=== PATIENT | male | born 1980 | race Asian ===

== ENCOUNTER 2018-06-16 13:32 | Emergency (ER) | payer SELFPAY ==
[~2018-06-16] VITALS: Ht 170.2 cm; Wt 78.0 kg
[2018-06-16 13:36] VITALS: BP 116/95
--- NOTE | 2018-06-16 13:40 | NUR ---
38 Y/O M BIB SELF W/C/O "I CAN'T BREATH." PT SAID HE FELT SOB AT WORK. PT O2 SAT 98% ON MONITOR ON ROOM AIR. 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 PERRL, WITH EVEN AND STEADY GAIT; LUNGS CLEAR BL, BREATHING UNLABORED; HR EVEN AND REGULAR, BL PERIPHERAL PULSES PRESENT; BS ACTIVE X4, NO TENDERNESS TO PALPATION, NO HEPATOSPLENOMEGALLY PALPATED, RESONANT TO PERCUSSION; PT DENIES ANY FEVER, CP, SOB, OR COUGH AT THIS TIME; PT STATES 0/10 PAIN AT THIS TIME; VSS; PATIENT POSITIONED FOR COMFORT; HOB ELEVATED; BEDRAILS UP X2; BED DOWN.
[2018-06-16] MEDS ORDERED: DEXAMETHASONE 10 MG/ML VIAL IM ONE (13:50)
[2018-06-16] MEDS ORDERED: IPRATROPIUM 0.02% 0.5 MG/2.5 ML NEBU INH ONE (13:50)
[2018-06-16] MEDS ORDERED: ALBUTEROL SULFATE/IPRATROPIU 3 ML SOL IH ONE (13:50)
[2018-06-16] MEDS ORDERED: ALBUTEROL 0.083% 2.5 MG/3 ML NEBU INH ONE (13:50)
[2018-06-16] MEDS: diphenhydrAMINE 50 MG/ML VIAL IM ONE ×2 (14:10→14:13)
[2018-06-16 14:50] VITALS: BP 120/94
--- NOTE | 2018-06-16 14:50 | NUR ---
Patient discharged with v/s stable. Written and verbal after care instructions given and explained. Patient alert, oriented and verbalized understanding of instructions. Ambulatory with steady gait. All questions addressed prior to discharge. ID band removed. Patient advised to follow up with PMD. Rx of AZITHROMYCIN, PREDNISONE, ALBUTEROL given. Patient educated on indication of medication including possible reaction and side effects. Opportunity to ask questions provided and answered.
== END 2018-06-16 14:50 | disposition home or self-care (01) ==
LOC: MED 13:32
DX: J45.901 Unspecified asthma with (acute) exacerbation (principal)
CPT/HCPCS: 71046; 94640; 96372; 99284; J1100; J1200; J7613; J7620; J7644

== ENCOUNTER 2019-01-30 21:17 | Emergency (ER) | payer MEDICAID ==
[~2019-01-30] VITALS: Ht 170.2 cm; Wt 78.0 kg
[2019-01-30 21:20] VITALS: BP 145/90
--- NOTE | 2019-01-30 21:22 | NUR ---
TO LOBBY A/W BED, EDI LUIS NOTED
[2019-01-30] MEDS ORDERED: ALBUTEROL SULFATE/IPRATROPIU 3 ML SOL IH ONE (21:40)
[2019-01-30] MEDS ORDERED: ALBUTEROL 0.083% 2.5 MG/3 ML NEBU INH ONE (21:40)
[2019-01-30] MEDS ORDERED: predniSONE 20 MG TAB PO ONE (21:40)
--- NOTE | 2019-01-30 21:40 | NUR ---
PT AMBULATED TO BED 8
--- NOTE | 2019-01-30 21:45 | NUR ---
38 YO M BIB SELF PRESENTS TO THE ED WITH CO SOB X 1 DAY. PT HAS AUDIBLE WHEEZING, INSP AND EXP. SP02: 92% NO NASAL FLARING. CHEST EXPANSION EQUAL, REGULAR UNLABORED. PT IS HOMELESS. PMH-- ASTHMA RX-- DENIES
--- NOTE | 2019-01-30 21:50 | NUR ---
HHN THERAPY AND RESPIRATORY DRUGS GIVEN ORDERED
--- NOTE | 2019-01-30 21:50 | NUR ---
Respiratory Therapist at bedside for respiratory intervention.
[2019-01-30 22:49] VITALS: BP 123/85
--- NOTE | 2019-01-30 22:49 | NUR ---
Patient discharged with v/s stable. Written and verbal after care instructions given and explained. Patient alert, oriented and verbalized understanding of instructions. Ambulatory with steady gait. All questions addressed prior to discharge. ID band removed. Patient advised to follow up with PMD. Rx of prednisone and albuterol given. Patient educated on indication of medication including possible reaction and side effects. Opportunity to ask questions provided and answered. Pt provided with meal bag, bus pass and homeless resources. Pt dressed appropriately for weather.
== END 2019-01-30 22:49 | disposition home or self-care (01) ==
LOC: MED 21:17
DX: J45.901 Unspecified asthma with (acute) exacerbation (principal); F17.200 Nicotine dependence, unspecified, uncomplicated
CPT/HCPCS: 94640; 99283; J7512; J7613; J7620

== ENCOUNTER 2019-02-01 09:17 | Emergency (ER) | payer MEDICAID ==
[~2019-02-01] VITALS: Ht 170.2 cm; Wt 78.0 kg
[2019-02-01 09:28] VITALS: BP 132/103
--- NOTE | 2019-02-01 09:35 | NUR ---
iv access started aseptically to rt ac area with # 20 gauge,blood drawn/sent to lb,flushed with ns.pt tolerated procedures with no incidents.pt drove here from home for 1--2 day old difficulty breathing/wheezing.danielle adler.awaits reevaluations.
--- NOTE | 2019-02-01 09:39 | NUR ---
er md at bedside for evaluations/assessments.danielle adler.monitors on.awaits reevalautions.
[2019-02-01] MEDS ORDERED: methylPREDNISolone SS 125 MG/2 ML VIAL IVP ONE ×2 (09:45→10:50)
[2019-02-01] MEDS ORDERED: ALBUTEROL 0.083% 2.5 MG/3 ML NEBU INH ONE (09:45)
[2019-02-01] MEDS ORDERED: IPRATROPIUM 0.02% 0.5 MG/2.5 ML NEBU INH ONE (09:45)
--- NOTE | 2019-02-01 09:47 | NUR ---
pt refused flu swab.core java software engineermetal burnisher pan and er made aware.
--- NOTE | 2019-02-01 09:59 | NUR ---
resp. therapist bedside for tx.aao,nad.pt tolerated procedures with no incidents.
[2019-02-01 10:00] LABS: BASOPHILS # (AUTO) 0.1 K/uL (0.00-0.22); EOSINOPHILS # (AUTO) 0.3 K/uL (0-0.4); EOSINOPHILS % (AUTO) 3.2 % (0.0-4.0); HEMATOCRIT 52.3 % (36-52); HEMOGLOBIN 17.2 g/dL (12.0-18.0); LYMPHOCYTES # (AUTO) 3.5 K/uL (2.0-11.5); LYMPHOCYTES % (AUTO) 32.7 % (20.5-51.1); MEAN CORPUSCULAR HEMOGLOBIN 28 pg (27-31); MEAN CORPUSCULAR HGB CONC 33 g/dL (33-37); MEAN CORPUSCULAR VOLUME 86.4 fL (80-94); MONOCYTES # (AUTO) 0.7 K/uL (0.8-1.0); MONOCYTES % (AUTO) 6.4 % (1.7-9.3); NEUTROPHILS # (AUTO) 6.1 K/uL (1.8-7.7); NEUTROPHILS % (AUTO) 56.7 % (42.2-75.2); PLATELET COUNT (AUTO) 248 K/uL (140-450); RED BLOOD CELL COUNT(AUTO) 6.05 MIL/uL (4.20-6.10); RED CELL DISTRIBUTION WIDTH 14.4 % (11.6-13.7); WHITE BLOOD COUNT (AUTO) 10.7 K/uL (4.8-10.8)
--- NOTE | 2019-02-01 10:00 | NUR ---
HHN THERAPY AND RESPIRATIRY DRUGS GIVEN ORDERED
[2019-02-01 10:07] LABS: ANION GAP 13.3 (8-16); CARBON DIOXIDE 29.6 mmol/L (21-32); CREATININE 0.8 mg/dL (0.7-1.3); POTASSIUM 3.9 mmol/L (3.5-5.1)
[2019-02-01 10:13] LABS: ALBUMIN 3.8 g/dL (3.4-5.0); TOTAL BILIRUBIN 0.4 mg/dL (0.0-1.0)
--- NOTE | 2019-02-01 10:43 | NUR ---
ambulated to/from bathroom but no urine specimen.back to bed.security called to open door.awaits reevaluations.
[2019-02-01] MEDS ORDERED: ALBUTEROL SULFATE/IPRATROPIU 3 ML SOL IH ONE (11:10)
--- NOTE | 2019-02-01 11:32 | NUR ---
FOLLOW UP HHN THERAPY AND RESPIRATORY DRUG GIVEN ORDERED
[2019-02-01 11:44] VITALS: BP 141/82
--- NOTE | 2019-02-01 12:02 | NUR ---
pt left without d/c instructions with appropriate clothing and food was offered while here.art framing managervarnishing machine operator and er md aware.
== END 2019-02-01 11:54 | disposition home or self-care (01) ==
LOC: MED 09:17
DX: J45.901 Unspecified asthma with (acute) exacerbation (principal); E11.9 Type 2 diabetes mellitus without complications; I10 Essential (primary) hypertension
CPT/HCPCS: 36415; 71045; 80053; 85025; 87804; 94640; 96374; 99284; J2930; J7613; J7620; J7644

== ENCOUNTER 2019-02-02 21:04 | Emergency (ER) | payer MEDICAID ==
[~2019-02-02] VITALS: Ht 170.2 cm; Wt 78.0 kg
[2019-02-02 21:08] VITALS: BP 149/126
--- NOTE | 2019-02-02 21:12 | NUR ---
PT TO ER BED 11
--- NOTE | 2019-02-02 21:15 | NUR ---
PT TO ED WITH C/O SOB. PT REPORTS HX OF ASTHMA. WHEEZING HEARD BILATERALLY. NO OBVIOUS DISTRESS NOTED. PT PLACED INTO BED, PENDING MD CHANG.
[2019-02-02] MEDS ORDERED: ALBUTEROL SULFATE/IPRATROPIU 3 ML SOL IH ONE (21:30)
--- NOTE | 2019-02-02 21:37 | NUR ---
RT AT BEDSIDE FOR INTERVENTION.
--- NOTE | 2019-02-02 22:38 | NUR ---
Patient discharged with v/s stable. Written and verbal after care instructions given and explained. Patient alert, oriented and verbalized understanding of instructions. Ambulatory with steady gait. All questions addressed prior to discharge. ID band removed. Patient advised to follow up with PMD. Rx of PREDNISONE, ALBUTEROL given. Patient educated on indication of medication including possible reaction and side effects. Opportunity to ask questions provided and answered.
[2019-02-02 22:39] VITALS: BP 149/90
== END 2019-02-02 22:38 | disposition home or self-care (01) ==
LOC: MED 21:04
DX: J45.901 Unspecified asthma with (acute) exacerbation (principal); E11.9 Type 2 diabetes mellitus without complications; I10 Essential (primary) hypertension; F17.210 Nicotine dependence, cigarettes, uncomplicated
CPT/HCPCS: 94640; 99283; J7620

== ENCOUNTER 2019-02-04 07:46 | Inpatient (IN) | payer MEDICAID ==
[~2019-02-04] VITALS: Ht 170.2 cm; Wt 69.9 kg
[2019-02-04 07:56] VITALS: BP 131/80
--- NOTE | 2019-02-04 08:02 | NUR ---
PT AMBULATES TO BED 4
--- NOTE | 2019-02-04 08:03 | NUR ---
Patient being evaluated by physician at bedside.
--- NOTE | 2019-02-04 08:04 | NUR ---
38Y/M BIB SELF WITH C/O SOB X 3 DAYS WITH COUGH AND WHEEZING. PT WAS SEEN WAS SEEN HERE 3 DAYS AGO, COULD NOT OFFERED INHALER, PT IS SAT AT 90% AT THIS TIME WITH HISTORY OF COPD, PT IS AAOX4, VSS AT THIS TIME, BED DOWN, LOW LOCKED AND ER MD AWARE AND NOTIFIED OF PT STATUS. HX: COPD, ASTHMA
[2019-02-04] MEDS ORDERED: ALBUTEROL SULFATE/IPRATROPIU 3 ML SOL IH ONE ×2 (08:05)
[2019-02-04] MEDS ORDERED: methylPREDNISolone SS 125 MG in WATER STERILE 2 ML IM ONE (08:05)
[2019-02-04] MEDS ORDERED: NACL 0.9% 1,000 ML IV ONE (08:10)
[2019-02-04] MEDS ORDERED: methylPREDNISolone SS 125 MG in WATER STERILE 2 ML IV ONE (08:10)
--- NOTE | 2019-02-04 08:10 | NUR ---
LAB AT BEDSIDE
--- NOTE | 2019-02-04 08:14 | NUR ---
RT AT BEDSIDE
[2019-02-04 08:33] LABS: BASOPHILS % (AUTO) 0.2 % (0.0-2.0); EOSINOPHILS # (AUTO) 0.4 K/uL (0-0.4); EOSINOPHILS % (AUTO) 3.2 % (0.0-4.0); HEMATOCRIT 50.3 % (36-52); HEMOGLOBIN 16.8 g/dL (12.0-18.0); LYMPHOCYTES # (AUTO) 3.2 K/uL (2.0-11.5); LYMPHOCYTES % (AUTO) 27.5 % (20.5-51.1); MEAN CORPUSCULAR HEMOGLOBIN 28 pg (27-31); MEAN CORPUSCULAR HGB CONC 33 g/dL (33-37); MEAN CORPUSCULAR VOLUME 84.8 fL (80-94); MONOCYTES # (AUTO) 0.7 K/uL (0.8-1.0); MONOCYTES % (AUTO) 6.3 % (1.7-9.3); NEUTROPHILS # (AUTO) 7.3 K/uL (1.8-7.7); NEUTROPHILS % (AUTO) 62.8 % (42.2-75.2); PLATELET COUNT (AUTO) 238 K/uL (140-450); RED BLOOD CELL COUNT(AUTO) 5.93 MIL/uL (4.20-6.10); RED CELL DISTRIBUTION WIDTH 14.2 % (11.6-13.7); WHITE BLOOD COUNT (AUTO) 11.6 K/uL (4.8-10.8)
[2019-02-04 08:55] LABS: ANION GAP 12.6 (8-16); CARBON DIOXIDE 27.3 mmol/L (21-32); CREATININE 0.8 mg/dL (0.7-1.3); POTASSIUM 3.9 mmol/L (3.5-5.1)
[2019-02-04] MEDS ORDERED: DOCUSATE SODIUM 100 MG GELCAP PO PRN (09:00)
[2019-02-04] MEDS ORDERED: ONDANSETRON 4 MG/2 ML VIAL IM/IVP PRN (09:00)
[2019-02-04] MEDS ORDERED: HYDROcodone/APAP 7.5/325 MG 1 TAB PO PRN (09:00)
[2019-02-04] MEDS ORDERED: ACETAMINOPHEN 325 MG TAB PO PRN (09:00)
[2019-02-04 09:01] LABS: ALBUMIN 3.7 g/dL (3.4-5.0); TOTAL BILIRUBIN 0.4 mg/dL (0.0-1.0)
--- NOTE | 2019-02-04 09:27 | NUR ---
Patient will be admitted to care of DR. MORGAN. Admited to MED SURG. Will go to room 111-A. Belongings list completed. Report to ALYSIA PINO.
--- NOTE | 2019-02-04 09:27 | NUR ---
PT TAKEN TO [facility]LO[facility] BY ALYSIA OJEDA VIA WHEELCHAIR
[2019-02-04 09:30] VITALS: BP 140/89
--- NOTE | 2019-02-04 09:30 | NUR ---
PATIENT ADMITTED TO THE UNIT. PATIENT AOX4 AND AMBULATORY. IV ON THE RIGHT HAND 20G INTACT AND PATENT. SKIN INTACT. NO S/S OF DISTRESS. PT ON ROOM AIR SAT 94% AT THIS TIME. BED LOWERED WITH CALL LIGHT WITHIN REACH. PT ORIENTED TO ROOM AND CALL LIGHT. WILL CONTINUE TO MONITOR PT CLOSELY.
[2019-02-04 10:04] LABS: CHOL/HDL RATIO 3.3 (1-4.5); FREE T4 (FREE THYROXINE) 1.12 ng/dL (0.76-1.46); MAGNESIUM 1.9 mg/dL (1.8-2.4); PHOSPHORUS 3.8 mg/dL (2.5-4.9); THYROID STIMULATING HORMONE 1.66 uIU/mL (0.34-3.74)
--- NOTE | 2019-02-04 10:12 | NUR ---
PT IS UNCOOPERATIVE DURING ASSESSMENT. HE IS REFUSING TO ANSWER MEDICAL HX QUESTIONS. IV FLUIDS RUNNING. VITAL SIGNS STABLE. MRSA SWAB DONE AND TAKEN TO LAB. ALL OTHER NEEDS MET. PT ASKING FOR FOOD. NOTIFIED DR THAT DIET IS REQUIRED. AWAITING DIET SO FOOD TRAY CAN BE ORDERED.
[2019-02-04] MEDS: NACL 0.9% 1,000 ML IV SCH (10:37)
[2019-02-04] MEDS: LACTOBACILLUS RHAMNOSUS GG 1 EACH CAP PO SCH (10:37)
[2019-02-04] MEDS ORDERED: LACTULOSE 20 GM/30 ML UDC PO SCH (11:15)
--- NOTE | 2019-02-04 12:45 | NUR ---
PT IN BED WATCHING TV. ALL NEEDS CURRENTLY MET. WILL CONTINUE TO ROUND FREQUENTLY ON PT. BED IN LOW POSITION, CALL LIGHT WITHIN REACH.
[2019-02-04] MEDS: ALBUTEROL SULFATE/IPRATROPIU 3 ML SOL IH SCH ×2 (13:44→19:16)
--- NOTE | 2019-02-04 14:29 | NUR ---
PT RESTING IN BED. ALL NEEDS CURRENTLY MET. NO COMPLAINTS OF PAIN OR SOB AT THI TIME. BED IN LOW POSITION, CALL LIGHT WITHIN REACH. WILL ROUND FREQUENTLY ON PT.
[2019-02-04 16:00] VITALS: BP 115/67
--- NOTE | 2019-02-04 16:06 | NUR ---
PT ASLEEP IN BED. ALL NEEDS MET AT THIS TIME. NO SIGNS OF SOB OR PAIN. WILL ROUND FREQUENTLY. BED IN LOW PSOTION, CALL LIGHT WITHIN REACH.
--- NOTE | 2019-02-04 17:58 | NUR ---
PT IN BED EATING DINNER. NO COMPLAINTS OF PAIN OR SOB AT THIS TIME. WILL CONTINUE TO MONITOR PT CLOSELY. BED IN LOW POSITION, CALL LIGHT WITHIN REACH.
[2019-02-04] MEDS ORDERED: INSULIN LISPRO SLIDING SCALE 100 UNITS/ML VIAL SUBQ PRN (18:30)
[2019-02-04] MEDS ORDERED: DEXTROSE 50% 50 ML SYR IVP PRN (18:30)
--- NOTE | 2019-02-04 19:10 | NUR ---
ENDORSED PT TO YARN PACKER FOR CONTINUITY OF CARE. PT IN STABLE CONDITION.
--- NOTE | 2019-02-04 19:11 | NUR ---
RECEIVED BEDSIDE REPORT FROM AM SHIFT NURSE. PATIENT AOX4 AND AMBULATORY. BUT WITH FLAT AFFECT. PT IS AMERICAN, BUT UNDERSTANDS [place]. PT APPEARANCE UNKEMPT, REFUSED TO BE PLACED IN A DRESSING GOWN. STILL IN HIS BARE BACK AND PANTS (HX: SCHIZ). IV ON THE RIGHT HAND 20G INTACT AND PATENT. SKIN INTACT. NO S/S OF DISTRESS. BED LOWERED WITH CALL LIGHT WITHIN REACH. POC REVIEWED.. WILL CONTINUE TO MONITOR PT CLOSELY.
[2019-02-04 20:00] VITALS: BP 106/60
--- NOTE | 2019-02-04 20:10 | NUR ---
PT ALWAYS ASKING FOR SNACKS. CHECKED HIS BLOOD SUGAR 150 MG/DL. NO COVERAGE
[2019-02-04] MEDS: methylPREDNISolone SS 125 MG/2 ML VIAL IVP SCH (20:38)
--- NOTE | 2019-02-04 20:38 | NUR ---
PT AGREED TO HAVE HIS MEDICATION AFTER CONVINCING HIM TO HAVE IT-SOLUMEDROL.SAID HE NEEDS IT TO BREATHE EASIER
[2019-02-04] MEDS: BLOOD GLUCOSE MONITORING 1 DEV DEV FS SCH (20:39)
--- NOTE | 2019-02-05 02:00 | NUR ---
PT SLEEPING, NO COMPLAINTS AT THIS TIME. NO RESPIRATORY DISTRESS. HE TOOK OFF HIS 02 2 LPM. TRIED TO PUT IT BACK BUT PT REFUSED. 02 SAT AT THIS TIME 98% W/O O2 VIA CANNULA
[2019-02-05] MEDS: NACL 0.9% 1,000 ML IV SCH ×2 (03:25→09:26)
[2019-02-05 04:00] VITALS: BP 103/57
--- NOTE | 2019-02-05 04:00 | NUR ---
PT DRESSED HIMSELF IN DRESSING GOWN, COLD TEMP IN THE ROOM NOTED.
[2019-02-05] MEDS: BLOOD GLUCOSE MONITORING 1 DEV DEV FS SCH ×3 (05:33→17:19)
--- NOTE | 2019-02-05 06:03 | NUR ---
PT REFUSED TO HAVE LABS WORKS DONE. EXPLAINED THE RISK AND BENEFITS. PT UNCOOPERATIVE
--- NOTE | 2019-02-05 06:54 | NUR ---
PT IN STABLE CONDITION, SLEEPING BUT EASILY AROUSABLE BY NAME. NO RESPIRATORY DISTRESS NOTED, NO COMPLAINTS OF PAIN.WILL ENDORSE TO NEXT SHIFT FOR CONTINUITY OF CARE.
[2019-02-05] MEDS: ALBUTEROL SULFATE/IPRATROPIU 3 ML SOL IH SCH ×3 (07:13→20:08)
--- NOTE | 2019-02-05 07:27 | NUR ---
RECEIVED REPORT FROM CHAIN SAW OPERATOR NURSE. PATIENT LYING DOWN IN BED WATCHING TV. NO DISTRESS NOTED. DENIES ANY PAIN. AAOX2, CALM, NOT-COOPERATIVE, REFUSED AM LABS THIS MORNING, MD ALREADY AWARE. RESPIRATIONS EVEN, UNLABORED, ON ROOM AIR. SKIN INTACT. IV SITE INTACT, PATENT, AND INFUSING IVF PER MD ORDERS. ABDOMEN SOFT, NON-DISTENDED. SAFETY MEASURES IN PLACE, CALL LIGHT WITHIN REACH. WILL CONTINUE TO MONITOR.
--- NOTE | 2019-02-05 08:10 | NUR ---
PATIENT REFUSES VITAL SIGNS CHECK AT THIS TIME. WILL NOTIFY
--- NOTE | 2019-02-05 08:30 | NUR ---
PATIENT GOT UP TO USE BATHROOM, ASKED PATIENT TO USE URINAL FOR URINE SPECIMEN. PATIENT REFUSES TO USE URINAL. NOTIFIED
--- NOTE | 2019-02-05 08:43 | NUR ---
PATIENT HAS BEEN SCREENED AND CATEGORIZED MODERATE NUTRITION RISK. PATIENT WILL BE SEEN WITHIN 3-5 DAYS OF ADMISSION. 02/06/[address]
[2019-02-05] MEDS: methylPREDNISolone SS 125 MG/2 ML VIAL IVP SCH (09:25)
[2019-02-05] MEDS: LACTOBACILLUS RHAMNOSUS GG 1 EACH CAP PO SCH (09:25)
--- NOTE | 2019-02-05 09:28 | NUR ---
PATIENT SITTING IN BED WATCHING TV. NO DISTRESS NOTED. DENIES ANY PAIN. SCHEDULED MEDICATIONS DUE GIVEN. WILL CONTINUE TO MONITOR.
--- NOTE | 2019-02-05 11:40 | NUR ---
PATIENT SITTING IN BED WATCHING TV. CONDITION UNCHANGED. WILL CONTINUE TO MONITOR.
--- NOTE | 2019-02-05 14:07 | NUR ---
PATIENT LYING DOWN IN BED WATCHING TV. ASKS FOR MORE FOOD. SUGARLESS JELLO GIVEN AT THIS TIME.
[2019-02-05 16:00] VITALS: BP 117/60
--- NOTE | 2019-02-05 19:33 | NUR ---
GAVE REPORT TO COAL PICKER NURSE FOR CONTINUITY OF CARE. PATIENT IN STABLE CONDITION.
--- NOTE | 2019-02-05 19:34 | NUR ---
Received endorsement from AM shift RN; patient A/Ox4, able to make needs known, ambulatory. Speaks Turkish and Cambodian Introduced self, updated board. No SOB or distress noted, on room air. IV site on right hand. 20 gauge, IVF infusing at 80mL/HR. Skin intact. Bed in the lowest position, call light within reach. Initial assessment done. Will continue to monitor.
--- NOTE | 2019-02-05 19:58 | NUR ---
Vitals taken, patient eating sandwich. Patient stated he wanted to leave the hospital immediately, AMA. Patient educated on risks of AMA. Made Dr. Robbins aware. Dr. Robbins went to bedside and talked to patient and explained risks of AMA. Patient accepted risks. Told patient that I will remove IV line and that he had to sign AMA paperwork, patient agreed, said that he will wait.
--- NOTE | 2019-02-05 20:04 | NUR ---
Went to patient's room to have him sign AMA paperwork, patient could not be found. Checked patient bathroom, patient could not be found. checked parking lot, patient could not be found. Patient elopement. Security and charge nurse made aware.
--- NOTE | 2019-02-05 20:09 | NUR ---
PT LEFT AMA.
[2019-02-05] MEDS ORDERED: methylPREDNISolone SS 40 MG/ML VIAL IVP SCH (21:00)
== END 2019-02-05 20:04 | disposition left against medical advice (07) | DRG 203 ==
LOC: MED 07:46 → MTU 08:57
PROVIDERS: ADMIT General Practice; ATTEND General Practice
DX: J45.901 Unspecified asthma with (acute) exacerbation (principal); F20.9 Schizophrenia, unspecified; K72.90 Hepatic failure, unspecified without coma; I10 Essential (primary) hypertension; E11.9 Type 2 diabetes mellitus without complications; F17.210 Nicotine dependence, cigarettes, uncomplicated; F12.90 Cannabis use, unspecified, uncomplicated; F94.0 Selective mutism; Z91.19 Patient's noncompliance with other medical treatment and regimen; Z59.0 Homelessness
CPT/HCPCS: 36415; 71045; 80053; 82140; 82948; 83036; 83605; 83735; 83880; 84100; 84439; 84443; 85025; 85610; 85730; 87040; 87081; 94640; 96361; 96374; 99285; J2930; J7030; J7620; Q0092

== ENCOUNTER 2019-02-09 05:35 | Emergency (ER) | payer MEDICAID ==
[~2019-02-09] VITALS: Ht 170.2 cm; Wt 78.0 kg
[2019-02-09 05:36] VITALS: BP 142/93
--- NOTE | 2019-02-09 05:36 | NUR ---
PT AMBULATORY TO ER BED 10
--- NOTE | 2019-02-09 05:36 | NUR ---
DR. HUYNH AT BEDSIDE
[2019-02-09] MEDS ORDERED: ALBUTEROL SULFATE/IPRATROPIU 3 ML SOL IH ONE ×2 (05:55→06:30)
[2019-02-09] MEDS ORDERED: methylPREDNISolone SS 125 MG in WATER STERILE 2 ML IV ONE (05:55)
--- NOTE | 2019-02-09 05:56 | NUR ---
Respiratory Therapist at bedside for respiratory intervention.
--- NOTE | 2019-02-09 06:30 | NUR ---
PT C/O ASTHMA EXCACERBATION. EXPIRATORY WHEEZING HEARD THROUGH OUT LUNGS BILATERALLY, RR 13, O2 90%. ALERT TO PERSON, PLACE, DATE. PERRLA 4MM, BRISK. EPISODES OF AGITATION. ER MD AT BEDSIDE, IV INITIATED, BED IN LOW POSITION, SIDE RAIL X1, HOB ELEVATED. ORDERS GIVEN. WILL CONTINUE TO MONITOR. Addendum: 02/09/19 at 0643 by MEDGA PT C/O ASTHMA EXCACERBATION. AUDIBLE WHEEZING HEARD, AUSCULTATED EXPIRATORY WHEEZING HEARD THROUGH OUT LUNGS BILATERALLY, RR 13, O2 90% TO ROOM AIR. ALERT TO PERSON, PLACE, DATE. PERRLA 4MM, BRISK. EPISODES OF AGITATION, PT HAS HX OF SCHIZOPHRENIA. ER MD AT BEDSIDE, IV INITIATED, BED IN LOW POSITION, SIDE RAIL X1, HOB ELEVATED. ORDERS GIVEN. WILL CONTINUE TO MONITOR.
--- NOTE | 2019-02-09 06:39 | NUR ---
FOLLOW UP HHN THERAPY AND RESPIRATORY DRUG GIVEN AT THIS TIME
--- NOTE | 2019-02-09 06:41 | NUR ---
PT LOOKS BETTER, O2 SAT 94%, PER RT PT HAS DIMINISHED BASES. MINIMAL WHEEZING HEARD BY NURSE, NO SOB, NO DYSPNEA, RR 14. WILL CONTINUE TO MONITOR.
--- NOTE | 2019-02-09 06:41 | NUR ---
RT AT BEDSIDE. BREATHING TX INITIATED.
[2019-02-09 07:32] VITALS: BP 115/80
--- NOTE | 2019-02-09 07:32 | NUR ---
PT denies being homeless. PT provided with bus pass and meal. PT dressed in wheater appropriate clothing.
--- NOTE | 2019-02-09 07:32 | NUR ---
Patient discharged with v/s stable. Written and verbal after care instructions given and explained. Patient alert, oriented and verbalized understanding of instructions. Ambulatory with steady gait. All questions addressed prior to discharge. ID band removed. Patient advised to follow up with PMD. Rx of albuterol and prednisone given. Patient educated on indication of medication including possible reaction and side effects. Opportunity to ask questions provided and answered. Addendum: 02/09/19 at 0736 by BENITA pt refused to sign discharge paper work
== END 2019-02-09 07:32 | disposition home or self-care (01) ==
LOC: MED 05:35
DX: R06.02 Shortness of breath (principal); J45.909 Unspecified asthma, uncomplicated; E11.9 Type 2 diabetes mellitus without complications; I10 Essential (primary) hypertension; F17.210 Nicotine dependence, cigarettes, uncomplicated
CPT/HCPCS: 71045; 94640; 96374; 99284; J2930; J7620; Q0092

== ENCOUNTER 2019-02-11 06:04 | Emergency (ER) | payer MEDICAID ==
[~2019-02-11] VITALS: Ht 170.2 cm; Wt 78.0 kg
[2019-02-11 06:06] VITALS: BP 110/70
--- NOTE | 2019-02-11 06:06 | NUR ---
TO BED # 09 AMBULATORY , REPORT GIVEN TO JADA HATFIELD
--- NOTE | 2019-02-11 06:11 | NUR ---
Dr. Singh evaluating patient at bedside.
[2019-02-11] MEDS ORDERED: methylPREDNISolone SS 125 MG/2 ML VIAL IM ONE (06:15)
[2019-02-11] MEDS ORDERED: ALBUTEROL SULFATE/IPRATROPIU 3 ML SOL IH ONE (06:15)
--- NOTE | 2019-02-11 06:27 | NUR ---
Respiratory Therapist at bedside for respiratory intervention.
--- NOTE | 2019-02-11 06:28 | NUR ---
HHN THERAPY AND RESPIRATORY DRUG GIVEN ORDERED
[2019-02-11 06:54] VITALS: BP 110/70
--- NOTE | 2019-02-11 06:54 | NUR ---
Patient discharged with v/s stable. Written and verbal after care instructions given and explained. Patient alert, oriented and verbalized understanding of instructions. Ambulatory with steady gait. All questions addressed prior to discharge. ID band removed. Patient advised to follow up with PMD. Rx of Prednisone, Albuterol given. Patient educated on indication of medication including possible reaction and side effects. Opportunity to ask questions provided and answered. Provided meal at discharge.
== END 2019-02-11 06:54 | disposition home or self-care (01) ==
LOC: MED 06:04
DX: J45.901 Unspecified asthma with (acute) exacerbation (principal); E11.9 Type 2 diabetes mellitus without complications; I10 Essential (primary) hypertension
CPT/HCPCS: 94640; 99283; J7620; J2930

== ENCOUNTER 2019-03-08 01:01 | Emergency (ER) | payer MEDICAID ==
[~2019-03-08] VITALS: Ht 170.2 cm; Wt 78.0 kg
[2019-03-08 01:10] VITALS: BP 150/90
--- NOTE | 2019-03-08 01:10 | NUR ---
TO BED # 11 AMBULATORY, REPORT GIVEN TO STAR HATFIELD
--- NOTE | 2019-03-08 01:20 | NUR ---
PATIENT LEFT WITHOUT BEING SEEN BY DR. HEATH. PT AMBULATED TO BED 11. THEN LWBS. NO FURTHER CARE PROVIDED FOR PATIENT.
== END 2019-03-08 01:20 | disposition left against medical advice (07) ==
LOC: MED 01:01
DX: R06.00 Dyspnea, unspecified (principal); R05 Cough; Z53.21 Procedure and treatment not carried out due to patient leaving prior to being seen by health care provider

== ENCOUNTER 2019-03-08 07:12 | Emergency (ER) | payer MEDICAID ==
[~2019-03-08] VITALS: Ht 170.2 cm; Wt 78.0 kg
--- NOTE | 2019-03-08 07:15 | NUR ---
TO BED # 11 AMBULATORY
[2019-03-08 07:19] VITALS: BP 174/110
--- NOTE | 2019-03-08 07:23 | NUR ---
PT BIB SELF FOR DIFFICULTY BREATHING SINCE THIS MORNING. PT O2 SAT AT 97% ON ROOM AIR, RR EVEN, NON-LABORED, INSPIRATORY WHEEZES THROUGHOUT. PT DENIES, N/V/D, OR FEVER. PT WAS HERE EARLY THIS MORNING AND LWBS. PT WAS GIVEN BUS PASS AND FOOD, PT STATES THAT HE STILL HAS BUS PASS. PT CLOTHES ARE DIRTY, PT DISHOVELED. PT DENIES BEING HOMELESS AND STATES HE LIVES IN AN APARTMENT. VSS. ER TO SEE PT. MEDHX:ASTHMA
[2019-03-08] MEDS ORDERED: ALBUTEROL 0.083% 2.5 MG/3 ML NEBU INH ONE (07:30)
[2019-03-08] MEDS ORDERED: ALBUTEROL SULFATE/IPRATROPIU 3 ML SOL IH ONE (07:30)
[2019-03-08] MEDS ORDERED: predniSONE 20 MG TAB PO ONE (07:30)
--- NOTE | 2019-03-08 07:37 | NUR ---
RT AT BEDSIDE AT THIS TIME GIVING PT BREATHING TREATMENT
--- NOTE | 2019-03-08 07:57 | NUR ---
PT FINISHED BREATHING TX, PT REPORTS THAT HIS BREATHING FEELS BETTER, DENIES SOB AT THIS TIME. O2 SAT AT 97%, RR EVEN, NON-LABORED, INSPIRATORY WHEEZES STILL PRESENT. Addendum: 03/08/19 at 0811 by BENITA SHAQUILLE CUENCA MADE AWARE
[2019-03-08 08:16] VITALS: BP 165/104
--- NOTE | 2019-03-08 08:16 | NUR ---
Patient discharged. PT HYPERTENSIVE AT 165/104, ER MD MADE AWARE. Written and verbal after care instructions given and explained. Patient alert, oriented and verbalized understanding of instructions. Ambulatory with steady gait. All questions addressed prior to discharge. ID band removed. Patient advised to follow up with PMD. Rx of PREDNISONE, AND ALBUTEROL given. Patient educated on indication of medication including possible reaction and side effects. Opportunity to ask questions provided and answered.
== END 2019-03-08 08:16 | disposition home or self-care (01) ==
LOC: MED 07:12
DX: J45.901 Unspecified asthma with (acute) exacerbation (principal)
CPT/HCPCS: 94640; 99283; J7512; J7613; J7620

== ENCOUNTER 2019-03-10 05:51 | Emergency (ER) | payer MEDICAID ==
[~2019-03-10] VITALS: Ht 170.2 cm; Wt 77.6 kg
--- NOTE | 2019-03-10 05:57 | NUR ---
pt ambulated to er bed 09
[2019-03-10 06:02] VITALS: BP 120/86
[2019-03-10] MEDS ORDERED: ALBUTEROL SULFATE/IPRATROPIU 3 ML SOL IH ONE (06:05)
--- NOTE | 2019-03-10 06:09 | NUR ---
BIB SELF WITH REPORTS OF ADULT ASTHMA ATTACK. STATES 10/10 HEAD PAIN. STATES ALL THE SYMPTOMS STARTED "JUST NOW". IS NOT WILLING TO ANSWER ANY FURTHER QUESTIONS. ERMD MADE AWARE. AUDIBLE WHEEZING, UNABLE TO LISTEN TO LUNGS.
--- NOTE | 2019-03-10 06:11 | NUR ---
RT AT BEDSIDE.
--- NOTE | 2019-03-10 06:12 | NUR ---
HHN THERAPY AND RESPIRATORY DRUG GIVEN ORDERED
--- NOTE | 2019-03-10 06:12 | NUR ---
RT AT BEDSIDE
[2019-03-10 06:25] VITALS: BP 120/86
--- NOTE | 2019-03-10 06:25 | NUR ---
Patient discharged with v/s stable. Written and verbal after care instructions given and explained. Patient verbalized understanding. Ambulatory with steady gait. All questions addressed prior to discharge. Advised to follow up with PMD.
--- NOTE | 2019-03-10 06:26 | NUR ---
BUS PASS AND HOMELESS FOOD PACKET PROVIDED TO PATIENT.
== END 2019-03-10 06:25 | disposition home or self-care (01) ==
LOC: MED 05:51
DX: J45.909 Unspecified asthma, uncomplicated (principal)
CPT/HCPCS: 94640; 99283; J7620

== ENCOUNTER 2019-05-31 16:34 | Emergency (ER) | payer MEDICAID ==
[~2019-05-31] VITALS: Ht 170.2 cm; Wt 78.0 kg
[2019-05-31 16:38] VITALS: BP 119/82
--- NOTE | 2019-05-31 16:46 | NUR ---
39/M BIB SELF WITH C/O SOB TODAY, HX OF ASTHMA, PT STATED RUN OF MEDICATION. AAOX4 WITH EVEN AND STEADY GAIT; LUNGS WHEEZING BL;PATIENT STATES PAIN OF 0/10 AT THIS TIME; PATIENT POSITIONED FOR COMFORT; HOB ELEVATED; BEDRAILS UP X1; BED DOWN. ER MD MADE AWARE OF PT STATUS.
--- NOTE | 2019-05-31 16:51 | NUR ---
Dr. Rosado evaluating patient at bedside.
[2019-05-31] MEDS ORDERED: ALBUTEROL SULFATE/IPRATROPIU 3 ML SOL IH ONE (16:55)
[2019-05-31] MEDS ORDERED: predniSONE 20 MG TAB PO ONE (16:55)
--- NOTE | 2019-05-31 17:14 | NUR ---
HHN TX GIVEN IN ER. PT UNABLE TO ANSWER QUESTIONS APPROPRIATELY BUT TOLERATED TX WELL.
[2019-05-31 17:56] VITALS: BP 118/65
--- NOTE | 2019-05-31 17:56 | NUR ---
Patient discharged with v/s stable. Written and verbal after care instructions given and explained. Patient alert, oriented and verbalized understanding of instructions. Ambulatory with steady gait. All questions addressed prior to discharge. ID band removed. Patient advised to follow up with PMD. Rx of PREDNISONE & VENTOLIN given. Patient educated on indication of medication including possible reaction and side effects. Opportunity to ask questions provided and answered.
== END 2019-05-31 17:56 | disposition home or self-care (01) ==
LOC: MED 16:34
DX: J45.901 Unspecified asthma with (acute) exacerbation (principal); E11.9 Type 2 diabetes mellitus without complications; I10 Essential (primary) hypertension
CPT/HCPCS: 94640; 99283; J7512; J7620

== ENCOUNTER 2019-06-01 10:08 | Emergency (ER) | payer SELFPAY ==
[~2019-06-01] VITALS: Ht 170.2 cm; Wt 73.0 kg
[2019-06-01 10:13] VITALS: BP 117/73
--- NOTE | 2019-06-01 10:17 | NUR ---
PT AMBULATED TO ER BED 09
--- NOTE | 2019-06-01 10:21 | NUR ---
39 Y MALE BIB SELF C/O BILAT KNEE PAIN 06/16, HEAD PAIN 04/16, DENIES TRAUMA/FALL/LOC. STARTED 3 DAYS AGO. NO OBVIOUS DEFORMITY TO KNEES. NO OPEN WOUNDS PRESENT. +CMS. DENIES ABDOMINAL PAIN DURING COMPLETE ASSESSMENT. PATIENT STATES "I NEED SOCKS FOR MY FEET". VSS AT THIS TIME. AA0X4. BED IS DOWN, LOCKED, BED RAIL X 1, ERMD TO SEE PT. HX: UNKNOWN RX: UNKNOWN
--- NOTE | 2019-06-01 10:21 | NUR ---
LUNG SOUNDS DIMINISHED BILATERALLY. NO COUGH PRESENT. RR EVEN AND UNLABORED.
--- NOTE | 2019-06-01 10:22 | NUR ---
PATIENT PLACED ON PULSE OX. PATIENT O2 AT 93% RA AT THIS TIME. PATIENT ADMITS TO HAVING ASTHMA
--- NOTE | 2019-06-01 10:23 | NUR ---
PT AMB TO RESTROOM FOR URINE SAMPLE, STEADY GAIT
--- NOTE | 2019-06-01 10:27 | NUR ---
DR RICK AT BEDSIDE
[2019-06-01] MEDS ORDERED: ALBUTEROL 0.083% 2.5 MG/3 ML NEBU INH ONE (10:30)
[2019-06-01] MEDS ORDERED: IPRATROPIUM 0.02% 0.5 MG/2.5 ML NEBU INH ONE (10:30)
[2019-06-01] MEDS ORDERED: predniSONE 20 MG TAB PO ONE (10:30)
--- NOTE | 2019-06-01 10:35 | NUR ---
RT AT BEDSIDE
--- NOTE | 2019-06-01 10:39 | NUR ---
PULSE OX AT 100% DURING BREATHING TREATMENT.
--- NOTE | 2019-06-01 10:56 | NUR ---
PATIENT CONINUES TO SAT AT 99% ON RA.
--- NOTE | 2019-06-01 11:20 | NUR ---
PATIENT STATES HE IS NOT HOMELESS BUT IS REQUESTING MEAL WITH DISCHARGE
[2019-06-01 11:25] VITALS: BP 123/75
--- NOTE | 2019-06-01 11:25 | NUR ---
Patient discharged with v/s stable. Written and verbal after care instructions given and explained. Patient alert, oriented and verbalized understanding of instructions. Ambulatory with steady gait. All questions addressed prior to discharge. ID band removed. Patient advised to follow up with PMD. Rx of ALBUTEROL INHALATION AND PREDNISONE given. Patient educated on indication of medication including possible reaction and side effects. Opportunity to ask questions provided and answered.
--- NOTE | 2019-06-01 11:25 | NUR ---
PATIENT GIVEN RESOURCE PACKET FOR SHELTERS, HAS SIGNED PT HOMLESS WAIVER FORM, GIVEN MEAL, AND HYGIENE BAG. PT REQUESTING BUS PASS. CALLED FOR BUS PASS. PT ASKED TO WAIT IN ER LOBBY FOR PASS. PT REFUSES. STATES HE IS NOT LEAVING. SECURITY CALLED TO ESCORT PT TO ER LOBBY.
--- NOTE | 2019-06-01 11:33 | NUR ---
SECURITY ESCORTED PT TO [facility]
--- NOTE | 2019-06-01 11:37 | NUR ---
PT LEFT ER LOBBY WITHOUT RECIEVING BUS PASS.
== END 2019-06-01 11:25 | disposition home or self-care (01) ==
LOC: MED 10:08
DX: S80.01XA Contusion of right knee, initial encounter (principal); S80.02XA Contusion of left knee, initial encounter; J45.909 Unspecified asthma, uncomplicated; R10.9 Unspecified abdominal pain; F17.200 Nicotine dependence, unspecified, uncomplicated; E11.9 Type 2 diabetes mellitus without complications; I10 Essential (primary) hypertension; Z71.6 Tobacco abuse counseling; W19.XXXA Unspecified fall, initial encounter; Y93.89 Activity, other specified; Y92.89 Other specified places as the place of occurrence of the external cause; Y99.8 Other external cause status
CPT/HCPCS: 94640; 99283; J7512; J7613; J7644

== ENCOUNTER 2019-06-02 09:49 | Emergency (ER) | payer MEDICAID ==
[~2019-06-02] VITALS: Ht 175.3 cm; Wt 73.9 kg
[2019-06-02 10:00] VITALS: BP 113/64
--- NOTE | 2019-06-02 10:04 | NUR ---
PT AMB TO BED 2 WITH STEADY GAIT
--- NOTE | 2019-06-02 10:15 | NUR ---
PT PRESENTS TO ED WITH C/O SOB. NO RESPIRATORY DISTRESS OBSERVED;RR EVEN AND UNLABORED. O2 SAT 96% ON RA. PLACED IN GOWN AND CONNECTED TO MONITOR, VSS. UNABLE TO OBTAINED PREVIOUS MEDICAL HX; PT IS A POOR HISTORIAN. ERMD TO EVALUATE PT.
[2019-06-02 11:33] VITALS: BP 130/82
--- NOTE | 2019-06-02 11:33 | NUR ---
Patient given written and verbal discharge instructions and verbalizes understanding. Patient is awake, alert and oriented. Ambulatory with steady gait. Refuses offer of senior care placement. Given list of available shelters in surrounding areas. Food bag and bus pass provided. VSS. RX of Albuterol and Singulair given. Opportunity to ask questions provided.
== END 2019-06-02 11:33 | disposition home or self-care (01) ==
LOC: MED 09:49
DX: J45.909 Unspecified asthma, uncomplicated (principal); E11.9 Type 2 diabetes mellitus without complications; I10 Essential (primary) hypertension; Z76.0 Encounter for issue of repeat prescription
CPT/HCPCS: 99283

== ENCOUNTER → 2019-06-02 23:48 | Emergency (ER) | payer SELFPAY ==
--- NOTE | 2019-06-02 23:48 | NUR ---
NO ANSWER FOR TRIAGE @ [id number]. PATIENT LEFT WITHOUT BEING SEEN BY DR. SMITH. NO FURTHER CARE PROVIDED FOR PATIENT.
== END | disposition left against medical advice (07) ==
LOC: MED 23:48
DX: Z53.21 Procedure and treatment not carried out due to patient leaving prior to being seen by health care provider (principal)

== ENCOUNTER 2019-06-03 13:09 | Emergency (ER) | payer SELFPAY ==
[~2019-06-03] VITALS: Ht 172.7 cm; Wt 78.0 kg
[2019-06-03 13:32] VITALS: BP 135/77
--- NOTE | 2019-06-03 15:40 | NUR ---
1540---1ST CALL, NO ANSWER. PATIENT LEFT WITHOUT BEING SEEN BY DR. SARAVIA. NO FURTHER CARE PROVIDED FOR PATIENT. 1550---2ND CALL, NO ANSWER. 1600---3RD CALL, NO ANSWER.
== END 2019-06-03 15:40 | disposition left against medical advice (07) ==
LOC: MED 13:09
DX: R06.02 Shortness of breath (principal); Z53.21 Procedure and treatment not carried out due to patient leaving prior to being seen by health care provider

== ENCOUNTER 2019-06-04 09:33 | Emergency (ER) | payer MEDICAID ==
[~2019-06-04] VITALS: Ht 172.7 cm; Wt 73.0 kg
[2019-06-04 09:41] VITALS: BP 122/84
--- NOTE | 2019-06-04 09:47 | NUR ---
Patient ambulated to bed 1. RN evaluating patient at bedside.
--- NOTE | 2019-06-04 09:55 | NUR ---
39M C/O SOB AND NEEDING INHALER, PT STATES HE IS UNABLE TO FILL RX THAT WAS GIVEN LAST TIME. INTERMITTENT COUGHING. PT IS A POOR HISTORIAN. WHEN ASKING PT IF COUGH IS PRODUCTIVE, HE STATES HE DOES NOT KNOW. MUMBLING ABOUT "MARCELLA FREITAS" AND "SNEED NAVID". WHEN ASKING FOR THIS PMHX, PT STATES "I DON'T KNOW". EXPIRATORY WHEEZING THROUGHOUT. 96% ON RA. ERMD TO EVAL PT. BEDRAILS UP, BED LOCKED AND LOW.
[2019-06-04] MEDS ORDERED: methylPREDNISolone SS 125 MG/2 ML VIAL IM ONE (10:30)
[2019-06-04] MEDS ORDERED: ALBUTEROL SULFATE/IPRATROPIU 3 ML SOL IH ONE (10:30)
--- NOTE | 2019-06-04 10:36 | NUR ---
ADMITTING DX: ASTHMA EDUCATION PROVIDED TO PATIENT WITH ACKNOWLEDGEMENT ON HHN THERAPY AND RESPIRATORY DRUG FOREMENTIONED GIVEN ORDERED ENCOURAGED PATIENT FOR INTERMITTENT DEEP BREATHING DURING THERAPY
--- NOTE | 2019-06-04 10:51 | NUR ---
WHEN ASKING IF PT IS HE FEELS BETTER AFTER BREATHING TX, PT REPLIED "YES"
[2019-06-04 11:26] VITALS: BP 131/87
--- NOTE | 2019-06-04 11:26 | NUR ---
Patient discharged with v/s stable. Written and verbal after care instructions given and explained. Patient alert, oriented and verbalized understanding of instructions. Ambulatory with steady gait. All questions addressed prior to discharge. ID band removed. Patient advised to follow up with PMD. Rx of ALBUTEROL INH AND PREDNISONE given. Patient educated on indication of medication including possible reaction and side effects. Opportunity to ask questions provided and answered.
== END 2019-06-04 11:26 | disposition home or self-care (01) ==
LOC: MED 09:33
DX: J45.901 Unspecified asthma with (acute) exacerbation (principal); E11.9 Type 2 diabetes mellitus without complications; I10 Essential (primary) hypertension
CPT/HCPCS: 94640; 96372; 99283; J2930; J7620

== ENCOUNTER 2019-06-07 12:04 | Emergency (ER) | payer MEDICAID ==
[~2019-06-07] VITALS: Ht 170.2 cm; Wt 72.6 kg
[2019-06-07 12:14] VITALS: BP 123/87
--- NOTE | 2019-06-07 12:15 | NUR ---
PT TAKEN TO BED 12.
[2019-06-07] MEDS ORDERED: ALBUTEROL SULFATE/IPRATROPIU 3 ML SOL IH ONE (12:20)
[2019-06-07] MEDS ORDERED: predniSONE 20 MG TAB PO ONE (12:20)
[2019-06-07] MEDS ORDERED: ALBUTEROL 0.083% 2.5 MG/3 ML NEBU INH ONE (12:20)
--- NOTE | 2019-06-07 12:28 | NUR ---
RT AT BEDSIDE.
--- NOTE | 2019-06-07 12:30 | NUR ---
PT BIB SELF FOR SOB AND BACK PAIN. PT CONTINUES TO STATE HIS BACK IS "BROKEN". PT IS AMBULATORY STEADY GAIT, NO BRUISING OR TRAUMA NOTED TO BACK. EXPIRATORY WHEEZES NOTED, PT IN NO RR DISTRESS, RR EVEN AND UNLABORED. PT IS HOMELES, CLOTHES DISHELVED.
--- NOTE | 2019-06-07 12:31 | NUR ---
HHN THERAPY AND RESPIRATORY DRUGS GIVEN ORDERED
[2019-06-07] MEDS ORDERED: KETOROLAC 60 MG/2 ML VIAL IM ONE (13:45)
--- NOTE | 2019-06-07 14:00 | NUR ---
PT RESTING IN BED, IN STABLE CONDITION
[2019-06-07 15:00] VITALS: BP 124/82
--- NOTE | 2019-06-07 15:00 | NUR ---
Patient discharged with v/s stable. Written and verbal after care instructions given and explained. Patient alert, oriented and verbalized understanding of instructions. Ambulatory with steady gait. All questions addressed prior to discharge. ID band removed. Patient advised to follow up with PMD. Rx of Motrin 800mg, Albuterol 90mcg/actuation inhalation and Prednisone 20mg given. Homeless packet, food and clothing provided for the patient. Pt left ED before obtaining the transportation pass. Patient educated on indication of medication including possible reaction and side effects. Opportunity to ask questions provided and answered.
== END 2019-06-07 15:00 | disposition home or self-care (01) ==
LOC: MED 12:04
DX: J45.901 Unspecified asthma with (acute) exacerbation (principal); M54.5 Low back pain; I10 Essential (primary) hypertension; E11.9 Type 2 diabetes mellitus without complications
CPT/HCPCS: 94640; 96372; 99284; J1885; J7512; J7613; J7620

== ENCOUNTER 2024-08-24 13:09 | Emergency (ER) | payer OTHER ==
[~2024-08-24] VITALS: Ht 170.2 cm; Wt 70.8 kg
[~2024-08-24 13:09] MED LIST: ALBU0.0912 IH; ALBU0.0912 INH; AZIT250T4 PO; IBUP-2213 PO; PRED20TA5 PO
[2024-08-24 13:27] VITALS: BP 118/87; PULSE 94; RESP 20; TEMP 98.1; O2SAT 96
[2024-08-24] MEDS ORDERED: ALBU0.0912 IH (13:32)
[2024-08-24] MEDS ORDERED: PRED20TA5 PO (13:32)
[2024-08-24 13:39] VITALS: PULSE 88; RESP 18; O2SAT 93
[2024-08-24] MEDS: ALBUTEROL SULFATE/IPRATROPIU 3 ML SOL IH ONE (13:45)
[2024-08-24] MEDS: predniSONE 20 MG TAB PO ONE (13:49)
== END 2024-08-24 14:18 | disposition home or self-care (01) ==
LOC: MED 13:09
DX: J45.901 Unspecified asthma with (acute) exacerbation (principal); E11.9 Type 2 diabetes mellitus without complications; I10 Essential (primary) hypertension; Z79.899 Other long term (current) drug therapy
CPT/HCPCS: 94640; 99283; J7512

== ENCOUNTER 2024-08-25 05:15 | Emergency (ER) | payer OTHER ==
[~2024-08-25] VITALS: Ht 170.2 cm; Wt 72.6 kg
[2024-08-25 05:23] VITALS: BP 124/76; PULSE 76; RESP 18; TEMP 97.5; O2SAT 97
[2024-08-25] MEDS: predniSONE 20 MG TAB PO ONE (05:34)
[2024-08-25] MEDS: ALBUTEROL SULFATE/IPRATROPIU 3 ML SOL IH ONE (05:38)
[2024-08-25] MEDS: ALBUTEROL 0.083% 2.5 MG/3 ML NEBU INH ONE (05:39)
[2024-08-25 05:41] VITALS: PULSE 72; RESP 18; O2SAT 98
[2024-08-25 05:55] VITALS: BP 120/71; PULSE 72; RESP 18; TEMP 97.5; O2SAT 98
== END 2024-08-25 05:55 | disposition home or self-care (01) ==
LOC: MED 05:15
DX: J45.901 Unspecified asthma with (acute) exacerbation (principal); E11.9 Type 2 diabetes mellitus without complications; I10 Essential (primary) hypertension; Z79.899 Other long term (current) drug therapy
CPT/HCPCS: 94640; 99283; J7512; J7613